=== PATIENT | female | born 1975 | race Caucasian/White ===

== ENCOUNTER → 2016-11-20 07:27 | Outpatient (CLI) | payer BC ==
--- NOTE | 2016-11-29 07:17 | EMG ---
PATIENT:ECHO TORRES DATE OF SERVICE: 11/20/16 MEDICAL RECORD: [id number] DATE OF : 71 LOCATION: [facility] ADMISSION DATE: REFERRING PHYSICIAN: ROSE DEAN MD INTERPRETING PHYSICIAN: LAY RUTH MD DATE OF SERVICE: 11/20/2016 Referred as an outpatient by Dr. Dean. ELECTROMYOGRAPHIC DATA: Electromyographic examination is limited to both upper extremities. In the right upper extremity, right median motor stimulation elicits a compound motor action potential with a distal latency of 3.2 milliseconds, peak amplitude of 9 millivolts, and calculated conduction velocity of 58 meters per second. Right ulnar motor stimulation elicits a compound motor action potential with a distal latency of 2.8 milliseconds, peak amplitude of 9 millivolts, and calculated conduction velocity of 66 meters per second. Right ulnar motor stimulation across the elbow fails to elicit evidence of conduction block at this level. Antidromic right median sensory stimulation elicits a response with a distal latency of 3.5 milliseconds, amplitude of 25 microvolts and calculated conduction velocity of 60 meters per second. Antidromic right ulnar sensory stimulation elicits a response with a distal latency of 3.5 milliseconds, amplitude of 35 microvolts and calculated conduction velocity of 65 meters per second. The right median F wave has a latency of 29 milliseconds. In the left upper extremity, left median motor stimulation elicits a compound motor action potential with a distal latency of 3.0 milliseconds, peak amplitude of 9 millivolts, and calculated conduction velocity of 60 meters per second. Left ulnar motor stimulation elicits a compound motor action potential with a distal latency of 2.8 milliseconds, peak amplitude of 8 millivolts, and calculated conduction velocity of 69 meters per second. Left ulnar motor stimulation across the elbow fails to elicit evidence of conduction block at this level. Antidromic left median sensory stimulation elicits a response with a distal latency of 3.3 milliseconds, amplitude of 30 microvolts and calculated conduction velocity of 60 meters per second. Antidromic left ulnar sensory stimulation elicits a response with a distal latency of 3.3 milliseconds, amplitude of 20 microvolts and calculated conduction velocity of 65 meters per second. The left median F wave has a latency of 28 milliseconds. Needle electrode examination is limited to both upper extremities as well. Muscles interrogated include the abductor pollicis brevis, first dorsal interosseous, abductor digiti minimi, pronator teres, biceps brachii, triceps and deltoid. There is no abnormality of insertional activity and no abnormal spontaneous activity is seen in all muscles interrogated. Motor unit potential morphology and the pattern of motor unit potential firing and recruitment is normal in all muscles sampled. INTERPRETATION: Electromyographic examination of both upper extremities is normal. There is no electrical evidence of a cervical radiculopathy or other lesion of the lower motor neuron in the upper extremities at this time. There is no evidence of active denervation. 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
== END | disposition home or self-care (01) ==
LOC: D.CN 07:27
DX: M79.642 Pain in left hand (principal); M79.641 Pain in right hand

== ENCOUNTER 2018-04-12 08:00 | Outpatient (CLI) | payer BC | END 2018-04-12 10:57 | disposition home or self-care (01) | LOC: D.MAMMO 08:00 | DX: Z12.31 Encounter for screening mammogram for malignant neoplasm of breast (principal) ==